=== PATIENT | female | born 1990 | race Hispanic/Latino ===

== ENCOUNTER 2016-10-16 13:08 | Emergency (ER) | payer OTHER ==
[~2016-10-16 13:08] MED LIST: FLUO20CA25 PO; GABA-502 PO; HYDR-656 PO; IBUP-1827 PO
[2016-10-16 13:11] VITALS: BP 124/78; PULSE 109; RESP 16; O2SAT 99
--- NOTE | 2016-10-16 14:35 | ED.REPORT ---
HPI-Trauma Minor / Fall Date of Service Oct 16, 2016 ED Provider: Bianca Hyde MD 26 year old female who is 14 weeks , presents to the ER accompanied by her partner with sharp right side abdominal pain status post fall down stairs just prior to arrival. Patient denies vaginal bleeding, and any other symptoms at this time. Nursing Notes Stated Complaint: 14 WKS /POST FALL Chief Complaint: Multiple Trauma/Fall Nursing Notes Reviewed: Yes Allergies: Coded Allergies: No Known Allergies (Verified Allergy, Unknown, 08/26/16) Scheduled Fluoxetine (Fluoxetine) 20 Mg Capsule 20 MG PO DAILY Gabapentin (Gabapentin) 300 Mg Capsule 300 MG PO BID hydrOXYzine Hcl (HydrOXYzine Hcl) 25 Mg Tablet 50 MG PO HS Scheduled PRN Hydrocodone-Acetaminophen 5-300 mg (Hydrocodone-Acetaminophen 5-300 mg) 1 Each Tablet 1 TABLET PO Q4H PRN PRN For Pain Ibuprofen (Ibuprofen) 600 Mg Tablet 600 MG PO TID PRN PRN For Pain General Time Seen by MD: 14:35 Chief Complaint Fall down stairs, Abdominal pain Hx Obtained From: Patient Arrived By: Walk-in Onset Occurred: Just prior to arrival Symptom Duration: Since onset Caused by: Accidental, Fall down stairs Location: Abdomen (Right) Quality: Painful, Sharp Severity: Current: Moderate Severity: Maximum: Moderate Past Medical History Past Medical History recurrent Bartholin gland cyst Reports: GERD Past Surgical History Removal of fatty tumor from her chest wall [place] duct cyst removal Bartholin gland cyst I&D wisdom teeth Family History Noncontributory Smoking History Never Smoker Social History Alcohol Use: Denies alcohol use Drug Use: Denies drug use Other Social History: Good social support, Local resident Occupation Works at [employer] Ambulatory Status Independent Review of Systems Musculoskeletal: Denies: Back pain, Extremity pain, Joint pain, Lumbar pain, Neck pain, Thoracic pain Neurologic: Denies: Dizziness, Headache, Lightheaded, Syncope Complete sys rev & neg: except as marked. GI: Reports: Abdominal pain, Denies: Nausea, Vomiting Physical Exam Initial Vital Signs Vital Signs (First) Date Time Temp Pulse Resp B/P Pulse Ox O2 Delivery O2 Flow Rate FiO2 10/16/16 13:11 36.6 109 16 124/78 99 Room Air Initial VS: Reviewed Head / Eyes: Atraumatic, Normocephalic Respiratory: Breath sounds normal, Clear to auscultation, No respiratory distress Cardiovascular: Regular rate & rhythm, Heart sounds normal, Intact distal pulses Extremities: Vascular intact, Neuro intact, No swelling, No tenderness Skin: Warm, Dry, No cyanosis Neurologic: Alert, Oriented, Nonfocal Psychiatric: Mood/affect normal, Behavior normal, Normal thought content General/Constitutional: Awake, Alert, Well developed, Well nourished Neck: Atraumatic, Supple, Full range of motion, No swelling, Non-tender, No midline vertebral tend Abdomen: No guarding, No rebound, No distention Tender on the right, mid clavicular to mid axillary line, ribs 10, 11, 12 : FHTs NL, FHT present by U/S, Contractions not present, movement present Uterus noncontracted. Posterior uterus. No retroplacental hemorrhage. Interpretation & Diagnostics US bedside, performed by me Uterus not contracted. Posterior uterus. No retroplacental hemorrhage. Re-Eval/Medical Decision Re-Evaluation/Progress : Time of Eval: 15:16 Re-Evaluation/Progress Note: Discussed ultrasound results and plan to discharge. Patient is amenable to the plan. Return precautions given. All other questions addressed. Counseled Regarding: Diagnosis, Lab results, Need for follow-up, When/why to return to ED Discharge & Departure Impression: Primary Impression: Fall Additional Impressions: Rib fractures Viable Disposition: Home Discharge Condition All VS Reviewed: Yes Condition: Stable Patient Instructions: Rib Fracture (DC) Additional Instructions: Your baby looks happy and healthy on bedside ultrasound. I expect your pain is due to rib fractures or bruised ribs. Expect to have pain for the next 6 weeks. Your pain will worsen over the next few days. Use Tylenol as directed for pain. Take Vicodin 1 every 4-6 hours as directed for severe pain. Make sure you continue your stool softerners.Take 2 at bedtime if needed. Do not drive while taking Vicodin. Congratulations on your second baby! Referrals: Nneka Yeager (PCP) [place] Attestation Portions of this note were transcribed by Farhana Hodge. I, Dr. Hyde, personally performed the history, physical exam and medical decision-making; I reviewed and confirmed the accuracy of the information in the transcribed note. Signed by: Munir Machuca, 10/16/2016 and 15:16 copies to: Nneka Yeager Shawna L MD Oct 16, 2016 14:35 FARHANA HODGE Oct 16, 2016 14:39
[2016-10-16] MEDS ORDERED: HYDR-3090 PO (15:10)
[2016-10-16] MEDS ORDERED: HYDROcodone-APAP 5-325 mg Tablet PO ONE (15:10)
[2016-10-16 15:26] VITALS: BP 116/74; PULSE 81; RESP 16
== END 2016-10-16 15:28 | disposition home or self-care (01) ==
LOC: SED 13:08
DX: O9A.211 Injury, poisoning and certain other consequences of external causes complicating pregnancy, first trimester (principal); O26.891 Other specified pregnancy related conditions, first trimester; S22.31XA Fracture of one rib, right side, initial encounter for closed fracture; W10.8XXA Fall (on) (from) other stairs and steps, initial encounter; Y93.89 Activity, other specified; Y92.89 Other specified places as the place of occurrence of the external cause; Y99.8 Other external cause status; R10.9 Unspecified abdominal pain; K21.9 Gastro-esophageal reflux disease without esophagitis; Z3A.14 14 weeks gestation of pregnancy

== ENCOUNTER 2017-04-19 23:14 | Inpatient (IN) | payer OTHER ==
[~2017-04-19] VITALS: Ht 154.9 cm; Wt 103.0 kg
[~2017-04-19 23:14] MED LIST changes: +HYDR-3090 PO
[2017-04-20] MEDS ORDERED: Lactated Ringer's 1,000 ML IV ONE (01:40)
[2017-04-20] MEDS ORDERED: Lactated Ringer's 1,000 ML IV SCH ×2 (01:40→03:23)
[2017-04-20 02:16] LABS: Mean Corpuscular Hemoglobin 26.9 pg (27.0-35.0); Mean Corpuscular Volume 82.8 fL (81-100)
[2017-04-20] MEDS ORDERED: Lactated Ringer's 1,000 ML IV PRN (03:23)
[2017-04-20] MEDS ORDERED: Sodium Chloride LOK Flush 10 mL Syringe IVFLUSH PRN (03:25)
[2017-04-20] MEDS ORDERED: Oxytocin 30 Units/500 mL LR 30 UNITS in IV Premix 1 EACH IV PRN ×2 (03:25→18:10)
[2017-04-20] MEDS ORDERED: Methylergonovine 0.2 mg/mL Inj IM PRN ×2 (03:25→18:10)
[2017-04-20] MEDS ORDERED: Oxytocin 10 Unit/mL Inj IM PRN ×2 (03:25→18:10)
[2017-04-20] MEDS ORDERED: diphenhydrAMINE 50 mg Capsule PO PRN (03:25)
[2017-04-20] MEDS ORDERED: Hemorrhage Kit, Post Partum XX ONE ×2 (03:25→18:10)
[2017-04-20] MEDS ORDERED: Ondansetron 2 mg/mL 2 mL Inj IVPUSH PRN ×2 (03:25→15:20)
[2017-04-20] MEDS ORDERED: Carboprost 250 mCg/mL Inj IM PRN ×2 (03:25→18:10)
[2017-04-20] MEDS ORDERED: PREN1TAB87 PO (05:05)
--- NOTE | 2017-04-20 09:26 | PCM.HPOB ---
Subjective Date of Service: Apr 20, 2017 Referring Provider: Admitting Physician: Oanh Guzmán MD Primary Care Physician: Nneka Yeager Attending Physician: Oanh Guzmán MD Chief Complaint 40 week gestation History of Present History of Present Illness This is a 26-year-old at 40 weeks and 3 days with a WERNER of 04/17/17 by known LMP of 07/11/16 presents with regular contractions. She states the contractions started in the evening and was dehydrated. She received fluids in the [facility] and was admitted for a single deceleration on tracing. She was scheduled for induction today. She is currently at 3 cm dilation and 50% effacement. She has a history of hemorrhage, complicated by the fact she is a [employer]. She will receive blood products if life- threatening situations arise. She is GBS negative. OB History: (2), Para (1), Term, Living (1) Obstetrical Complications: None Past Medical History Obstetrical History: 1 , complicated by hemorrhage Hx Tobacco Use: No Smoking Status: Never Smoker Hx Alcohol Use: No Hx Substance Use: No Past Family History Living Arrangement: with Family Genetic Screening/Counseling Genetic Screening/Counseling: Unknown Review of Systems Constitutional: Y: Chills, Fever Eyes: Denies: Blurred Vision Cardiovascular: Denies: Chest Pain, Edema, SOB while laying flat Respiratory: Denies: SOB with Exertion Gastrointestinal: Denies: Epigastric pain Genitourinary: Denies: Dysuria Musculoskeletal: Reports: Back Pain Neurological: Denies: Confusion Psychologic: Denies: Agitation Allergy Coded Allergies: No Known Allergies (Verified Allergy, Unknown, 08/26/16) Exam Vital Signs 124/81 Pulse 100 respiration rate 14 Temperature 36.6 Exam heart rate baseline 150 Cat I tracing with moderate variability Constitutional: Well-developed, Well-nourished, Obese HEENT: Atraumatic Lungs: Clear to Auscultation Heart: Regular Rate/Rhythm, Normal S1, Normal S2 Fundus Firm Abdomen: Gravid Extremities: Tenderness/Swelling Noted Neurological/Psychiatric: Alert, Oriented X3, Cooperative, No Acute Distress Neuro: Normal DTRs, No Clonus noted Labs/Diagnostics Labs Laboratory Tests 72 Hours Test 04/20/17 00:20 04/20/17 00:30 04/20/17 02:10 Hold Purple Top Tube Received (Received) Urine Random Creatinine 149mg/dL (16-392) Urine Random Total Protein 18mg/dL (0-15) Urine Protein/Creatinine Ratio 0.12 (0-200) White Blood Count 9.9th/mm3 (3.8-10.1) Red Blood Count 3.72mil/mm3 (3.90-5.20) Hemoglobin 10.0g/dL (12.0-15.6) Hematocrit 30.8% (35.0-46.0) Mean Corpuscular Volume 82.8fL (81-100) Mean Corpuscular Hemoglobin 26.9pg (27.0-35.0) Mean Corpuscular Hemoglobin Concent 32.5% (32.0-37.0) Red Cell Distribution Width 15.1% (12.3-15.4) Platelet Count 238bil/L (150-400) Hematology Comments Blood Urea Nitrogen 9mg/dL (6-20) Creatinine 0.37mg/dL (0.57-1.00) Uric Acid 5.5mg/dL (2.6-7.2) Aspartate Amino Transf (AST/SGOT) 10U/L (0-50) Alanine Aminotransferase (ALT/SGPT) 5U/L (0-32) Maternal Blood Type: O (positive) Hx Rho(D) Immune Globulin: No Group B Strep Results: Negative Previous Infant with GBS: Unknown Rubella: Immune OB Intrapartum Assessment/Plan Problems: (1) Elective induction of labor planned Status: Acute ICD Code: [id number] (2) 40 weeks gestation of Plan: Routine intrapartum care Induction with Pitocin if no progression by 12 PM Epidural by anesthesia Status: Acute ICD Code: Z3A.40 Attending Statement I saw patient and examined her. I agree with above plan. Magda Lopez DO Apr 20, 2017 09:26 Mary Puga MD Apr 22, 2017 14:52
[2017-04-20] MEDS ORDERED: Lactated Ringer's 500 ML IV ONE (15:17)
[2017-04-20] MEDS: Lactated Ringer's 1,000 ML IV SCH ×3 (15:17→23:17)
--- NOTE | 2017-04-20 15:18 | PCM.HPANE ---
Patient Data Surgeon Admitting Provider:Oanh Guzmán MD Attending Provider:Oanh Guzmán MD Primary Care Physician:Nneka Yeager Other Provider: Reason for Visit Term Labor TERM LABOR Ht/WT & BMI Body Mass Index Allergies Coded Allergies: No Known Allergies (Verified Allergy, Unknown, 08/26/16) Past Anesthesia History Anesthesia History: Denies:: Abnormal Airway, Anesthesia Reactions, Difficult Intubation, Fam Anesthesia Reaction Diabetes History Hx Diabetes?: No MRSA MRSA: No Medications Hypertension Medication: No Home Meds Incl Beta Antoine: No Reported Medications Vit W-Ca,Fe,FA(<1 mg) ( Vitamins)1 Each Tablet1 Each PO DAILY 04/20/17 hydrOXYzine Hcl (HydrOXYzine Hcl)25 Mg [id number] Mg PO HS 08/21/16 Gabapentin 300 Mg [id number] Mg PO BID 08/21/16 Fluoxetine 20 Mg [id number] Mg PO DAILY 08/21/16 Discontinued Scripts Hydrocodone-Acetaminophen 5-300 mg 1 Each Tablet1 Tablet PO Q4H PRN For Pain # 14 TABLET Prov:Bianca Hyde MD 10/16/16 Ibuprofen 600 Mg [id number] Mg PO TID PRN For Pain #30 TABLET Prov:Julio Napoles MD 08/27/16 History History of ENT Problems?: No HEENT History: Denies:: Abnormal Airway Difficult Intubation Dysphagia Hearing Problem Sinus Problem TMJ Denture Type: None Teeth Condition: Within Normal Limits Hx of Heart Problems?: No Cardiovascular History: Denies:: Congestive Heart Failure Hypertension Hx of Respiratory Problem?: Yes Respiratory History: Denies:: Oxygen Administration Tuberculosis Use of C-PAP Machine Hx Neurologic Problems?: No Hx of GI Problems?: No Hx of Problems?: Yes HX of Peritoneal Dialysis: No Female Hx: Denies:: Currently Endometriosis Pelvic Inflammatory Problems with Breasts? Skin History: Denies:: History Skin Disorders? Pressure Ulcers Hx Musculoskeletal Problems?: Yes Musculoskeletal History: Positive for:: Musculoskeletal Trauma (Vague Lt. Ankle Pain) Denies:: Back Injury Degenerative Joint Joint Replacement Systemic Lupus Hx of Psycho/Social Problems?: No Hx Surgeries?: Yes (Breast benign tumor, wisdom teeth, bartholin gland cyst) Hx Any Other Health Problems?: Yes Other History: Denies:: Cancer Endocrine Disease Hospitalization Thyroid Disease History Blood Transfusions: Denies:: Blood Transfusions Hx Diabetes: No Hx Alcohol Use: NoHx Substance Use: No Smoking Status: Never Smoker Have You Smoked inLast 12 mo: No Stop/Bang Risk Assessment Category Category 1A: Patient has history of documented sleep apnea, and HAS NOT received any narcotic, sedative or anesthesia administration during this stay. Category 1B: Patient has history of documented sleep apnea, and HAS received any narcotic , sedative or anesthesia administration during this stay Category 2: Patient has SUSPECTED Obstructive Sleep Apnea, and HAS received any narcotic , sedative or anesthesia administration during this stay. Category 3: Patient has SUSPECTED Obstructive Sleep Apnea and HAS NOT received narcotic, sedative or anesthesia administration during this stay. Category 4: Outpatient in Procedural Areas with known sleep apnea or who screen positive for High Risk via the STOP/BANG questionnaire. Exam Exam General Appearance: Alert, Oriented X3, Cooperative, Moderate Distress (during contractions) HEENT/AIRWAY: MP 1 Lungs: Normal Air Movement Heart: Exam Unremarkable Meds/Labs/Diagnostics Admission Meds Current Medications Lactated Ringer's 1,000 ml @ 0 mls/hr Q0M ONCE IV Last administered on 01:49; Start 04/20/17 at 01:40; Stop 04/20/17 at 01:41; Status DC Lactated Ringer's (Lr) 1,000 ml @ 0 mls/hr Q0M IV Last administered on 01:51; Start 04/20/17 at 01:40 Labs Test 04/20/17 00:20 04/20/17 00:30 04/20/17 02:10 Hold Purple Top Tube Received (Received) Urine Random Creatinine 149mg/dL (16-392) Urine Random Total Protein 18mg/dL (0-15) Urine Protein/Creatinine Ratio 0.12 (0-200) White Blood Count 9.9th/mm3 (3.8-10.1) Red Blood Count 3.72mil/mm3 (3.90-5.20) Hemoglobin 10.0g/dL (12.0-15.6) Hematocrit 30.8% (35.0-46.0) Mean Corpuscular Volume 82.8fL (81-100) Mean Corpuscular Hemoglobin 26.9pg (27.0-35.0) Mean Corpuscular Hemoglobin Concent 32.5% (32.0-37.0) Red Cell Distribution Width 15.1% (12.3-15.4) Platelet Count 238bil/L (150-400) Hematology Comments Blood Urea Nitrogen 9mg/dL (6-20) Creatinine 0.37mg/dL (0.57-1.00) Uric Acid 5.5mg/dL (2.6-7.2) Aspartate Amino Transf (AST/SGOT) 10U/L (0-50) Alanine Aminotransferase (ALT/SGPT) 5U/L (0-32) Plan Impression Patient chart reviewed, patient interviewed and anesthestic plan with risks, benefits, and alternatives discussed, and informed consent obtained. ASA Physical Status: ASA3 Severe Disease (morbid obesity) Anesthetic Plan: Epidural Bene/Risks/Altern/Consents: Yes HP Complete Prior to Induction: Yes Other elected for CSE given pt's extreme discomfort and high BP Uvaldo Mauro MD Apr 20, 2017 15:18
[2017-04-20] MEDS ORDERED: fentaNYL 2 mCg/mL-Bupiv 0.125% 100 ML EPIDURAL SCH (15:20)
[2017-04-20] MEDS ORDERED: Atropine 1 mg/10 mL (Code) Syringe IVPUSH PRN (15:20)
[2017-04-20] MEDS ORDERED: EPHEDrine Sulfate 50 mg/mL Inj IVPUSH PRN (15:20)
[2017-04-20] MEDS ORDERED: Witch Hazel-Glycerin Pads TOPICAL PRN (18:10)
[2017-04-20] MEDS ORDERED: Benzocaine (Dermoplast) 20% 60 Gm Spray TOPICAL PRN (18:10)
[2017-04-20] MEDS ORDERED: LANOlin HPA 7 Gm Ointment TOPICAL PRN (18:10)
--- NOTE | 2017-04-20 19:07 | OP ---
[address] [address] OPERATIVE REPORT PATIENT: LAURENT JOHNS : 1990 MR#: [id number] ADMIT: 04/20/2017 JOB ID: [id number] DATE OF SURGERY: 04/20/2017 SURGEON: PREOPERATIVE DIAGNOSIS(ES): POSTOPERATIVE DIAGNOSIS(ES): A 26-year-old female, 2, para 2 now, presents to [facility] for leaking of fluid. This morning, after admission, the patient has INCOMPLETE: Dictation ends here.
--- NOTE | 2017-04-20 19:14 | OP ---
[address] [address] OPERATIVE REPORT PATIENT: LAURENT JOHNS : 1990 MR#: [id number] ADMIT: 04/20/2017 JOB ID: [id number] DELIVERY NOTE: SERVICE DATE: 04/20/2017 DELIVERING PHYSICIAN: Mary Puga MD DETAILS OF DELIVERY: A 26-year-old female. She is 2, para 2 now, presented to [facility] for scheduled elective induction. She was noticed that her cervix was 3 cm dilated, 75 effaced this morning. Pitocin started for induction. The patient got epidural for pain management. Her labor pain was well controlled. The AROM was performed around 4 o'clock with clear fluid. The patient progressed to full dilation with a category 1 tracing. She had a strong urge to push and she had a good effort to push. The head was gradually descended with each pushing and delivered. When she started to push, the head was at LOP position. With pushing, the head gradually changed to MELY and delivered at MELY position and shoulder and chest delivered without difficulty. There was no nuchal cord. The was placed on mother's chest. There was spontaneous crying and a good tone. Delayed cord clamp was performed 1 minute after delivery. Regular cord blood collected. Placenta delivered spontaneously and examined with three-vessel cord. The uterus was massaged, and Pitocin started. There was only a small gush of blood noticed after the placenta delivered, and then there was very little bleeding. The perineum examined with no laceration. EBL during delivery was 100. All instrument, needle, lap, and gauze counts correct twice. score of was 8 and 9. The weight was 7 pounds 13 ounces. DATE OF SURGERY: SURGEON: PREOPERATIVE DIAGNOSIS(ES): POSTOPERATIVE DIAGNOSIS(ES):
[2017-04-21] MEDS: Lactated Ringer's 1,000 ML IV SCH ×4 (02:06→15:17)
[2017-04-21 07:50] LABS: Mean Corpuscular Hemoglobin 27.1 pg (27.0-35.0); Mean Corpuscular Volume 83.6 fL (81-100)
--- NOTE | 2017-04-21 15:42 | PCM.DIMED ---
Discharge Instructions Date of Service Apr 21, 2017 Dates of Hospitalization Apr 20, 2017 at 03:15 Diet Discharge Diet: No restrictions Activity Discharge Activity: No restrictions Call your provider Call your provider for: Fever or Chills, Shortness of breath, Bleeding, Chest pain, Vomitting, Excessive diarrhea, Weakness (unilateral) Patient Instructions Follow-up with PCP in: 6 weeks David Burris MD Apr 21, 2017 15:42
[2017-04-21] MEDS ORDERED: DOCU-41 PO (15:44)
[2017-04-21] MEDS ORDERED: IBUP800T28 PO (15:44)
[2017-04-21] MEDS ORDERED: HYDR-4003 PO (15:44)
[2017-04-21 16:08] VITALS: BP 116/62; PULSE 90; RESP 18
--- NOTE | 2017-04-21 16:23 | DIS ---
[address] [address] DISCHARGE SUMMARY PATIENT: LAURENT JOHNS : 1990 MR#: [id number] ADMIT: 04/20/2017 JOB ID: [id number] DIS: ADMITTING DIAGNOSIS: A 26-year-old, 2, para 1, at 40 weeks and 3 days in active labor. DISCHARGE DIAGNOSIS: A 26-year-old, 2, para 2 status post spontaneous vaginal delivery at term. HOSPITAL COURSE: The patient is a 26-year-old, 2, para 2 now, who came to Labor and Delivery in the afternoon of April 20, 2017, complaining of contractions. The contractions were regular and intense. On exam the was found to be in the cephalic presentation. The cervix was 3 cm dilated, 50% effaced. The patient was GBS negative. She had a category 1 tracing throughout the delivery. The patient was admitted for delivery. She had artificial rupture of membranes at 4:00, with clear amniotic fluid. She progressed to full dilation and underwent spontaneous vaginal delivery at around 5:30 p.m. Delivered a female with Apgars 8 at one minute and 9 at five minutes. Weight 7 pounds and 13 ounces. Estimated blood loss was 100 mL. The patient has not had any lacerations. On day one she was stable, afebrile. Had some problems with breast feeding and counseling was received. She has not had any bleeding and she has not had any excessive pain. The abdomen was soft and nondistended. The fundus was firm. The perineum was intact, with no bleeding, no abnormal vaginal discharge. The legs were showing no pitting edema and no calf tenderness. Labs on day one: WBC count 8.5, hemoglobin 9.4, hematocrit 29.0, platelet count 239. DISPOSITION: The patient was discharged home on day one, April 21, 2017, with all discharge criteria met. She received discharge medications including ibuprofen 800 mg p.o. q.6 h. p.r.n. for pain, docusate sodium 100 mg p.o. daily, Vicodin 5/325 mg one tablet p.o. q.i.d. for breakthrough pain. Followup visit in OB clinic is scheduled in six weeks.
== END 2017-04-21 18:15 | disposition home or self-care (01) | DRG 560 ==
LOC: FBCO 23:14 → FBC 04-20 03:15
PROVIDERS: ADMIT Obstetrics & Gynecology; ATTEND Obstetrics & Gynecology
PROC: 10E0XZZ Delivery of Products of Conception, External Approach (ICD-10-PCS; principal; 2017-04-20)
PROC: 10907ZC Drainage of Amniotic Fluid, Therapeutic from Products of Conception, Via Natural or Artificial Opening (ICD-10-PCS; 2017-04-20)
PROC: 3E033VJ Introduction of Other Hormone into Peripheral Vein, Percutaneous Approach (ICD-10-PCS; 2017-04-20)
DX: O48.0 Post-term pregnancy (principal); Z37.0 Single live birth; Z3A.40 40 weeks gestation of pregnancy